=== PATIENT | male | born 1980 | race Hispanic/Latino ===

== ENCOUNTER 2017-05-28 17:31 | Emergency (ER) | payer BC, OTHER ==
[2017-05-28] MEDS ORDERED: IBUPROFEN 600 MG TABLET ONE (18:06)
[2017-05-28 19:06] LABS: RAPID GROUP A STREP NEGATIVE (NEGATIVE)
== END 2017-05-28 19:32 | disposition home or self-care (01) ==
LOC: EDH 17:31
DX: J09.X2 Influenza due to identified novel influenza A virus with other respiratory manifestations (principal); R50.81 Fever presenting with conditions classified elsewhere
CPT/HCPCS: 87804; 87880

== ENCOUNTER 2019-06-28 12:51 | Emergency (ER) | payer OTHER ==
[2019-06-28] MEDS ORDERED: ACETAMINOPHEN EXTRA STRENGTH 500 MG TABLET ONE (13:38)
== END 2019-06-28 16:40 | disposition home or self-care (01) ==
LOC: EDH 12:51
DX: H92.02 Otalgia, left ear (principal)
CPT/HCPCS: 70480